=== PATIENT | female | born 1950 | race Caucasian/White ===

== ENCOUNTER → 2019-12-10 | Outpatient (REF) | payer MEDICARE | LOC: M LAB REF 12:32 | PROVIDERS: ATTEND Physician Assistant | DX: L82.1 Other seborrheic keratosis (principal) | CPT/HCPCS: 11102; 17110; 88305; G0463 ==

== ENCOUNTER → 2020-04-25 | Outpatient (REF) | payer MEDICARE | LOC: M LAB REF 11:17 | PROVIDERS: ATTEND Physician Assistant | DX: D04.30 Carcinoma in situ of skin of unspecified part of face (principal) ==

== ENCOUNTER → 2021-12-19 | Outpatient (REF) | payer MEDICARE | LOC: M SFHCDERM 14:16 | PROVIDERS: ATTEND Physician Assistant | DX: D36.14 Benign neoplasm of peripheral nerves and autonomic nervous system of thorax (principal) ==

== ENCOUNTER → 2022-12-16 | Outpatient (CLI) | payer MEDICARE ==
[~2022-12-16] MED LIST: ASPI81TA26 PO; BUSP15TA47 PO; CENT1TAB PO; LEVO100T5 PO; LIDOCAINE 1% MDV 20ML VIAL As Ordered ONE; LISI20TA33 PO; LOVA40TA PO; Lutein PO; SERT50TA29 PO; VITA1CAP4 PO
[2022-12-16 10:45] VITALS: TEMP 97.6
[2022-12-16 12:00] VITALS: BP 186/91; O2SAT 96
== END ==
LOC: M IRPRO 10:32
PROVIDERS: ATTEND Otolaryngology
DX: R22.1 Localized swelling, mass and lump, neck (principal); E04.1 Nontoxic single thyroid nodule

== ENCOUNTER 2023-03-26 07:26 | Observation (INO) | payer MEDICARE ==
[~2023-03-26] VITALS: Ht 167.6 cm; Wt 114.3 kg
[~2023-03-26 07:26] MED LIST changes: -LIDOCAINE 1% MDV 20ML VIAL As Ordered ONE; +ZOLO100T PO
[2023-03-26] MEDS ORDERED: LR 1,000 ML IV SCH ×3 (11:00→11:35)
[2023-03-26] MEDS ORDERED: oxyCODONE 5MG TAB PO PRN ×2 (11:00→11:35)
[2023-03-26] MEDS ORDERED: ONDANSETRON 4MG 2ML VIAL IV PRN ×3 (11:00→13:15)
[2023-03-26] MEDS ORDERED: fentaNYL 100 MCG/2 ML INJECTION IV PRN ×2 (11:00→11:35)
[2023-03-26] MEDS ORDERED: MEPERIDINE 25 MG/ML 1ML VIAL IV PRN ×2 (11:00→11:40)
[2023-03-26] MEDS ORDERED: HYDROMORPHONE HCL 0.5 MG/ 0.5 ML SYRINGE IV PRN (11:00)
[2023-03-26] MEDS: HYDROMORPHONE HCL 0.5 MG/ 0.5 ML SYRINGE IV PRN ×2 (11:40→11:48)
[2023-03-26] MEDS ORDERED: CLINDAMYCIN 300 MG in IV 1 EA IV SCH (12:00)
[2023-03-26] MEDS ORDERED: ANEXSIA, NORCO 7.5MG/325MG TABLET(HYDROCODONE/APAP) PO PRN ×2 (13:00→13:40)
[2023-03-26 13:10] VITALS: BP 130/64; TEMP 97.3; O2SAT 92
[2023-03-26] MEDS: LR 1,000 ML IV SCH ×2 (13:15→23:13)
[2023-03-26] MEDS ORDERED: LIDOCAINE W/EPINEPHRINE 1% 20ML VIAL As Ordered ONE (13:17)
[2023-03-26 13:40] VITALS: BP 128/65; TEMP 97.3; O2SAT 95
[2023-03-26 14:10] VITALS: BP 129/62; TEMP 97; O2SAT 96
[2023-03-26] MEDS ORDERED: CLOT1CRE71 TOP (15:06)
[2023-03-26] MEDS ORDERED: NYST1POW9 TOP (15:06)
[2023-03-26] MEDS ORDERED: LUTE20TA2 PO (15:06)
[2023-03-26 15:10] VITALS: BP 132/63; TEMP 97.5; O2SAT 96
[2023-03-26 15:38] LABS: HEMATOCRIT 42.6 % (36.0-47.0); HEMOGLOBIN 13.3 g/dl (12.0-15.5); MEAN CORPUSCULAR HEMOGLOBIN 29.5 pg (27.0-33.0); MEAN CORPUSCULAR HGB CONC 31.2 g/dl (32.0-36.5); MEAN CORPUSCULAR VOLUME 94.5 fl (80.0-96.0); PLATELET COUNT, AUTOMATED 212 10^3/uL (150-450); RED BLOOD COUNT 4.51 10^6/uL (4.00-5.40); WHITE BLOOD COUNT 11.2 10^3/uL (4.0-10.0)
[2023-03-26] MEDS: CLINDAMYCIN 300 MG in IV 1 EA IV SCH ×2 (15:46→23:13)
[2023-03-26 16:05] LABS: ALBUMIN 3.5 G/DL (3.2-5.2); ALKALINE PHOSPHATASE 81 U/L (46-116); ALT/SGPT 23 U/L (7.0-40); AST/SGOT 21 U/L (<34); BILIRUBIN,TOTAL 0.4 MG/DL (0.3-1.2); BLOOD UREA NITROGEN 18 MG/DL (9-23); CALCIUM LEVEL 8.4 MG/DL (8.3-10.6); CARBON DIOXIDE LEVEL 27 MMOL/L (20-31); CHLORIDE LEVEL 105 MMOL/L (98-107); CREATININE FOR GFR 0.77 MG/DL (0.55-1.30); GLOMERULAR FILTRATION RATE > 60.0 (>39); GLUCOSE, FASTING 165 MG/DL (74-106); POTASSIUM SERUM 4.5 MMOL/L (3.5-5.1); SODIUM LEVEL 141 MMOL/L (136-145); TOTAL PROTEIN 6.3 G/DL (5.7-8.2)
[2023-03-26 16:15] VITALS: BP 141/77; TEMP 97.9; O2SAT 96
[2023-03-26] MEDS: ACETAMINOPHEN TAB 650MG DOSE (2X325MG) PO PRN (20:11)
[2023-03-26 22:11] VITALS: BP 121/58; TEMP 98.1; O2SAT 97
[2023-03-27 02:00] VITALS: BP 126/60; TEMP 98; O2SAT 98
[2023-03-27] MEDS: ACETAMINOPHEN TAB 650MG DOSE (2X325MG) PO PRN ×2 (03:53→10:47)
[2023-03-27] MEDS: CLINDAMYCIN 300 MG in IV 1 EA IV SCH (05:58)
[2023-03-27 06:00] VITALS: BP 133/68; TEMP 98.1; O2SAT 97
[2023-03-27] MEDS ORDERED: LEVOTHYROXINE 100MCG TABLET (0.1MG) PO SCH (06:00)
[2023-03-27 07:25] LABS: HEMATOCRIT 40.1 % (36.0-47.0); HEMOGLOBIN 12.4 g/dl (12.0-15.5); MEAN CORPUSCULAR HEMOGLOBIN 29.5 pg (27.0-33.0); MEAN CORPUSCULAR HGB CONC 30.9 g/dl (32.0-36.5); MEAN CORPUSCULAR VOLUME 95.5 fl (80.0-96.0); PLATELET COUNT, AUTOMATED 201 10^3/uL (150-450); WHITE BLOOD COUNT 8.4 10^3/uL (4.0-10.0)
[2023-03-27 07:48] LABS: BLOOD UREA NITROGEN 13 MG/DL (9-23); CALCIUM LEVEL 8.4 MG/DL (8.3-10.6); CARBON DIOXIDE LEVEL 31 MMOL/L (20-31); CHLORIDE LEVEL 105 MMOL/L (98-107); CREATININE FOR GFR 0.72 MG/DL (0.55-1.30); GLOMERULAR FILTRATION RATE > 60.0 (>39); GLUCOSE, FASTING 98 MG/DL (74-106); POTASSIUM SERUM 4.2 MMOL/L (3.5-5.1); SODIUM LEVEL 141 MMOL/L (136-145)
[2023-03-27 08:19] VITALS: BP 133/68
[2023-03-27] MEDS ORDERED: SIMVASTATIN 40 MG TAB PO SCH (09:00)
[2023-03-27] MEDS ORDERED: VITAMIN D 1,000 INTERNATIONAL UNITS TABLET PO SCH (09:00)
[2023-03-27] MEDS ORDERED: MULTIVITAMINS/MINERALS THERAP 1 TAB PO SCH (09:00)
[2023-03-27] MEDS ORDERED: SERTRALINE 100 MG TAB PO SCH (09:00)
[2023-03-27] MEDS ORDERED: busPIRone 5 MG TAB PO SCH (09:00)
== END 2023-03-27 11:50 | disposition home or self-care (01) ==
LOC: M SDC 07:26 → M MS5PR 13:05 → M SDC 14:19
PROVIDERS: ADMIT Otolaryngology; ATTEND Otolaryngology
DX: D34 Benign neoplasm of thyroid gland (principal); R06.83 Snoring; I10 Essential (primary) hypertension; E03.9 Hypothyroidism, unspecified; E78.5 Hyperlipidemia, unspecified; F32.A Depression, unspecified; J30.1 Allergic rhinitis due to pollen; Z88.0 Allergy status to penicillin; Z88.8 Allergy status to other drugs, medicaments and biological substances; Z91.040 Latex allergy status; Z79.899 Other long term (current) drug therapy; Z79.890 Hormone replacement therapy; Z87.891 Personal history of nicotine dependence
CPT/HCPCS: 36415; 60210; 80048; 80053; 85027; 87635; 88307; J0737; J1170

== ENCOUNTER → 2024-04-26 | Outpatient (CLI) | payer MEDICARE ==
[~2024-04-26] MED LIST changes: +CLOT1CRE71 TOP; +LUTE20TA2 PO; +NYST1POW9 TOP
== END ==
LOC: M RAD 12:04
PROVIDERS: ATTEND Otolaryngology
DX: D34 Benign neoplasm of thyroid gland (principal)